=== PATIENT | male | born 1955 | race Caucasian/White ===

== ENCOUNTER 2020-01-27 00:03 | Emergency (ER) | payer OTHER ==
[~2020-01-27 00:03] MED LIST: ALBU90OI INH; AMIT25 PO; ASPI81CH PO; ATOR80 PO; AZIT250 PO; BUDE6HFA INH; CLOP75 PO; FERSU300 PO; LISI5 PO; Loratadine10 MG PO; METO25ER PO; PANT40 PO; PRAM.5; PRED20 PO; TIOT18 INH; VENL75ER PO
== END 2020-01-27 02:57 | disposition home or self-care (01) ==
DX: M79.89 Other specified soft tissue disorders (principal); M25.511 Pain in right shoulder; M25.512 Pain in left shoulder; T78.40XA Allergy, unspecified, initial encounter; F17.200 Nicotine dependence, unspecified, uncomplicated